=== PATIENT | male | born 1965 | race Caucasian/White ===

== ENCOUNTER 2019-04-16 18:43 | Emergency (ER) | payer SELFPAY ==
[~2019-04-16] VITALS: Ht 182.9 cm; Wt 97.5 kg
--- NOTE | 2019-04-16 18:43 | NUR ---
Patient to ER bed 06 for evaluation. Side rails up.
--- NOTE | 2019-04-16 18:44 | NUR ---
Pt [place] [facility] [place] [facility] c/o 02/26 bilateral foot pain r/t "walking a lot." Upon placing in bed, pt began screaming and refuses to put gown on. Pt wearing hospital non-slip socks and has a [facility] wrist band on from recent stay. Pt re-oriented to unit. Pt incoherent and when asked if he has any psychosis diagnoses, he answers "Yes, but I don't know them." Denials suicidal ideations. No other injuries/complaints per pt/noted.
[2019-04-16 18:49] VITALS: BP_SYST 147
--- NOTE | 2019-04-16 19:20 | NUR ---
Pt Resting in ED bed comfortably. No acute distress noted at this time. Vital signs stable. Pt denies additional medical complaint at this time.
--- NOTE | 2019-04-16 19:35 | NUR ---
ER at bedside examining patient.
[2019-04-16] MEDS ORDERED: ACETAMINOPHEN 325 MG TABLET PO ONE (20:00)
[2019-04-16] MEDS ORDERED: DIPH-TET-PERTUS Vaccine 0.5 ML VIAL (ADACEL) I.M. ONE (20:00)
--- NOTE | 2019-04-16 20:03 | NUR ---
Patient refused Tylenol and TdaP shot. Dr. Cline made aware.
--- NOTE | 2019-04-16 21:00 | NUR ---
Pt Resting in ED bed comfortably. No acute distress noted at this time. Vital signs stable. Pt denies additional medical complaint at this time.
--- NOTE | 2019-04-16 22:11 | NUR ---
No acute distress noted at this time. Pt resting comfortably in ED bed. VSS
--- NOTE | 2019-04-17 00:12 | NUR ---
Pt resting in ED Bed comfortably. No distress noted at this time. Pt Denies pain, denies additional medical complaint at this time. VSS
--- NOTE | 2019-04-17 02:00 | NUR ---
Pt resting in ED Bed comfortably. No distress noted at this time. Pt Denies pain, denies additional medical complaint at this time. VSS
[2019-04-17 02:50] VITALS: BP_SYST 116
--- NOTE | 2019-04-17 02:50 | NUR ---
Patient given written and verbal discharge instructions and verbalizes understanding. ER MD discussed with patient the results and treatment provided. Patient in stable condition. ID arm band removed. Pt given resources for long term, food, further medical treatment. Pt given additional clothing, blankets, meal and foodstuffs for later consumption. pt refused additional assistance from [facility] staff. No RX given. Patient educated on pain management and to follow up with PMD. Pain Scale 0/10. Opportunity for questions provided and answered.
== END 2019-04-17 02:50 | disposition home or self-care (01) ==
LOC: SED 18:43
DX: M72.2 Plantar fascial fibromatosis (principal); L84 Corns and callosities
CPT/HCPCS: 90715; 99283